=== PATIENT | male | born 1960 | race African-American/Black ===

== ENCOUNTER 2023-10-26 20:09 | Observation (INO) | payer BC, SELFPAY ==
[2023-10-26 20:38] LABS: #Basophils 0.05 10x3/uL (0.0-0.2); %Basophils 0.4 % (0.0-1.0); %Eosinophils 0.2 % (0.0-10.0); %Lymphocytes 23.7 % (21.0-51.0); %Monocytes 10.1 % (0.0-10.0); %Neutrophils 64.8 % (42.0-75.0); Hematocrit 38.4 % (42.0-52.0); Mean Corpuscular HGB CONC 33.9 g/dL (32.0-36.0); Mean Corpuscular Hemoglobin 24.7 pg (27.0-31.0); Mean Platelet Volume 9.9 fL (7.4-10.4); Platelet Count 284 10x3/uL (130-400); Red Blood Cell (RBC) Count 5.26 mill/uL (4.70-6.10)
[2023-10-26 20:51] LABS: ALT (SGPT) 23 U/L (8-55); AST (SGOT) 20 U/L (5-34); Albumin 4.5 g/dL (3.4-4.8); Alkaline Phosphatase 63 U/L (40-110); Anion Gap 19 mmol/L (10-20); BUN (Urea Nitrogen) 22 mg/dL (8.4-25.7); Bilirubin, Total 0.4 mg/dL (0.2-1.2); CK (CPK) 335 U/L (30-200); Calc. Creatinine Clearance 0 mL/min (70-130); Calcium 10.9 mg/dL (7.8-10.44); Carbon Dioxide 20 mmol/L (23-31); Chloride 104 mmol/L (98-107); Estimated GFR 28; Globulin 3.7 g/dL (2.4-3.5); Glucose 94 mg/dL (80-115); Potassium 4.1 mmol/L (3.5-5.1); Protein, Total 8.2 g/dL (5.8-8.1); Sodium 139 mmol/L (136-145)
[2023-10-26 20:54] LABS: Troponin I 0.025 ng/mL (< 0.028)
[2023-10-26 23:05] LABS: Troponin I 0.029 ng/mL (< 0.028)
[2023-10-27] MEDS ORDERED: Ondansetron PF 4 MG/2 ML Vial IVP PRN (00:19)
[2023-10-27] MEDS ORDERED: Acetaminophen 325 MG TAB PO PRN (00:19)
[2023-10-27] MEDS ORDERED: HumaLOG 300 UNITS/3 ML VIAL SC PRN ×2 (00:22)
[2023-10-27] MEDS ORDERED: Glucagon 1 MG/ML KIT IM PRN (00:22)
[2023-10-27] MEDS ORDERED: Dextrose 5% in Water 1,000 ML IV PRN (00:22)
[2023-10-27] MEDS ORDERED: Dextrose 50% Abboject 50 ML SYRINGE SLOW IVP PRN (00:22)
[2023-10-27 00:59] LABS: Bacteria/HPF None Seen HPF (None Seen); Bilirubin Negative (Negative); Blood, Urine Negative (Negative); CAUTI Indications for Culture Alt mental st,lethar; Clarity Clear (Clear); Glucose, Urine (Dipstick) Normal (Negative); Ketone, Urine Negative (Negative); Leukocyte Negative Leu/uL (Negative); Nitrite Negative (Negative); Protein, Urine (Dipstick) 20 mg/dL (Neg-Trace); RBC/HPF 0-3 HPF (0-3); Specific Gravity, Urine 1.016 (1.002-1.036); Squamous Epithelial 0-3 HPF (0-3); Urobilinogen Normal mg/dL (Less than 2); WBC/HPF 0-3 HPF (0-3)
[2023-10-27 01:03] LABS: Urine Culture Reflex No No
[2023-10-27 02:40] VITALS: BMI 30.4
[2023-10-27] MEDS: Sodium Chloride 0.9% 1,000 ML IV SCH (02:45)
[2023-10-27 04:57] LABS: #Basophils 0.03 10x3/uL (0.0-0.2); %Basophils 0.2 % (0.0-1.0); %Eosinophils 0.7 % (0.0-10.0); %Lymphocytes 30.1 % (21.0-51.0); %Monocytes 8.2 % (0.0-10.0); %Neutrophils 60.4 % (42.0-75.0); Hematocrit 36.1 % (42.0-52.0); Hemoglobin 12.6 g/dL (14.0-18.0); Mean Corpuscular HGB CONC 34.9 g/dL (32.0-36.0); Mean Corpuscular Hemoglobin 24.6 pg (27.0-31.0); Mean Corpuscular Volume 70.4 fL (78.0-98.0); Mean Platelet Volume 9.9 fL (7.4-10.4); Platelet Count 283 10x3/uL (130-400); RBC Distribution Width 15.9 % (11.5-14.5); Red Blood Cell (RBC) Count 5.13 mill/uL (4.70-6.10)
[2023-10-27 05:09] LABS: Troponin I 0.026 ng/mL (< 0.028)
[2023-10-27 05:10] LABS: Iron 38 ug/dL (65-175); Iron Binding Capacity, Total 284 mcg/dL (261-462)
[2023-10-27 05:11] LABS: Anion Gap 16 mmol/L (10-20); BUN (Urea Nitrogen) 17 mg/dL (8.4-25.7); Calc. Creatinine Clearance 74 mL/min (70-130); Calcium 9.5 mg/dL (7.8-10.44); Carbon Dioxide 21 mmol/L (23-31); Chloride 105 mmol/L (98-107); Estimated GFR 53; Glucose 121 mg/dL (80-115); Iron 38 ug/dL (65-175); Iron Binding Capacity, Total 284 mcg/dL (261-462); Potassium 3.5 mmol/L (3.5-5.1); Sodium 138 mmol/L (136-145)
[2023-10-27] MEDS: Amlodipine 10 MG TAB PO SCH (08:16)
[2023-10-27] MEDS ORDERED: Atorvastatin Calcium 20 MG TAB PO SCH (21:00)
[2023-10-27] MEDS: Atorvastatin Calcium 10 MG TAB PO SCH (21:27)
[2023-10-28 05:09] LABS: #Basophils Less than 0.03 10x3/uL (0.0-0.2); %Basophils 0.2 % (0.0-1.0); %Eosinophils 1.3 % (0.0-10.0); %Lymphocytes 32.8 % (21.0-51.0); %Monocytes 8.4 % (0.0-10.0); %Neutrophils 56.8 % (42.0-75.0); Hematocrit 36.5 % (42.0-52.0); Hemoglobin 12.7 g/dL (14.0-18.0); Mean Corpuscular HGB CONC 34.8 g/dL (32.0-36.0); Mean Corpuscular Hemoglobin 24.9 pg (27.0-31.0); Mean Corpuscular Volume 71.6 fL (78.0-98.0); Mean Platelet Volume 9.7 fL (7.4-10.4); Platelet Count 279 10x3/uL (130-400); RBC Distribution Width 15.6 % (11.5-14.5)
[2023-10-28 05:30] LABS: Anion Gap 12 mmol/L (10-20); BUN (Urea Nitrogen) 12 mg/dL (8.4-25.7); Calc. Creatinine Clearance 109 mL/min (70-130); Calcium 9.1 mg/dL (7.8-10.44); Carbon Dioxide 21 mmol/L (23-31); Chloride 105 mmol/L (98-107); Estimated GFR 85; Glucose 135 mg/dL (80-115); Magnesium 1.8 mg/dL (1.6-2.6); Potassium 3.8 mmol/L (3.5-5.1); Sodium 134 mmol/L (136-145)
[2023-10-28] MEDS: Amlodipine 10 MG TAB PO SCH (08:07)
[2023-10-28] MEDS ORDERED: Iopamidol 370 76% 100 ML VIAL ONE (10:19)
[2023-10-28] MEDS ORDERED: Communication Order-Pharmacy FS SCH (11:15)
[2023-10-28] MEDS ORDERED: Verapamil 5 MG/2 ML VIAL ONE (13:00)
[2023-10-28] MEDS ORDERED: Nitroglycerin 50 MG/250 ML BOT 250 ML ONE (13:00)
[2023-10-28] MEDS ORDERED: Heparin 10,000 UNITS/ 10 ML VIAL ONE (13:00)
[2023-10-28] MEDS ORDERED: Midazolam HCl 2 mg/2 ml Vial ONE (13:25)
[2023-10-28] MEDS ORDERED: fentaNYL 50 mcg/mL 1 mL Vial ONE (13:25)
[2023-10-28] MEDS ORDERED: Adenosine 6 mg (2 mL) VIAL ONE (13:25)
[2023-10-28] MEDS ORDERED: Sodium Chloride 0.9% 200 ML IV PRN (14:20)
[2023-10-28] MEDS ORDERED: Acetaminophen/Codeine 30-300mg Tablet PO PRN ×2 (14:20)
[2023-10-28] MEDS ORDERED: Nitroglycerin 0.4 MG TAB (25 Tab Bottle) SL PRN (14:20)
[2023-10-28] MEDS: Sodium Chloride 0.9% 1,000 ML IV SCH ×2 (14:50)
[2023-10-29 06:14] LABS: #Basophils 0.04 10x3/uL (0.0-0.2); %Basophils 0.4 % (0.0-1.0); %Lymphocytes 27.5 % (21.0-51.0); %Monocytes 9.4 % (0.0-10.0); %Neutrophils 60.1 % (42.0-75.0); Hematocrit 37.7 % (42.0-52.0); Hemoglobin 13.1 g/dL (14.0-18.0); Mean Corpuscular HGB CONC 34.7 g/dL (32.0-36.0); Mean Corpuscular Hemoglobin 24.4 pg (27.0-31.0); Mean Corpuscular Volume 70.2 fL (78.0-98.0); Mean Platelet Volume 10.1 fL (7.4-10.4); Platelet Count 278 10x3/uL (130-400); RBC Distribution Width 15.7 % (11.5-14.5); Red Blood Cell (RBC) Count 5.37 mill/uL (4.70-6.10)
[2023-10-29 06:28] LABS: Anion Gap 14 mmol/L (10-20); BUN (Urea Nitrogen) 8 mg/dL (8.4-25.7); Calc. Creatinine Clearance 113 mL/min (70-130); Calcium 9.1 mg/dL (7.8-10.44); Carbon Dioxide 20 mmol/L (23-31); Chloride 104 mmol/L (98-107); Estimated GFR 89; Glucose 123 mg/dL (80-115); Potassium 3.7 mmol/L (3.5-5.1); Sodium 134 mmol/L (136-145)
[2023-10-29 12:29] VITALS: BP 156/78; TEMP 98.1
== END 2023-10-29 16:31 | disposition home or self-care (01) ==
LOC: ERS 20:09 → 2SW 10-27 00:19 → UNDODISOB 10-29 14:18
PROVIDERS: ADMIT Internal Medicine; ATTEND Hospitalist
PROC: B246ZZZ Ultrasonography of Right and Left Heart (ICD-10-PCS; 2023-10-27)
PROC: 4A023N7 Measurement of Cardiac Sampling and Pressure, Left Heart, Percutaneous Approach (ICD-10-PCS; principal; 2023-10-28)
PROC: B200YZZ Plain Radiography of Single Coronary Artery using Other Contrast (ICD-10-PCS; 2023-10-28)
DX: R55 Syncope and collapse (principal); I47.29 Other ventricular tachycardia; I08.1 Rheumatic disorders of both mitral and tricuspid valves; I25.10 Atherosclerotic heart disease of native coronary artery without angina pectoris; E11.9 Type 2 diabetes mellitus without complications; T67.3XXA Heat exhaustion, anhydrotic, initial encounter; I10 Essential (primary) hypertension; N17.1 Acute kidney failure with acute cortical necrosis; D53.9 Nutritional anemia, unspecified; E78.5 Hyperlipidemia, unspecified
CPT/HCPCS: 36415; 36416; 80048; 80053; 81001; 82550; 82728; 83540; 83550; 83735; 83880; 84484; 85025; 93005; 93306; 93458; 94760; 96360; 99152; 99153; C1769; C1894; G0378; J0153; J1644; J2250; J3010; J7050; Q9967